=== PATIENT | female | born 1960 | race Caucasian/White ===

== ENCOUNTER → 2017-08-26 | Outpatient (CLI) | payer OTHER ==
[~2017-08-26] MED LIST: LEVSIN/SL0.125 MG PO
== END | disposition home or self-care (01) ==
LOC: RAD 501 08:59
DX: M25.552 Pain in left hip (principal); M54.5 Low back pain

== ENCOUNTER 2017-11-22 08:22 | Outpatient (CLI) | payer OTHER | END 2017-11-22 08:52 | disposition home or self-care (01) | LOC: MAMO-SONO 08:22 | DX: M54.5 Low back pain (principal); N64.4 Mastodynia; Z12.31 Encounter for screening mammogram for malignant neoplasm of breast ==

== ENCOUNTER 2018-01-11 13:32 | Outpatient (CLI) | payer OTHER | END 2018-01-11 14:23 | disposition home or self-care (01) | LOC: RAD 13:32 | DX: M54.5 Low back pain (principal) ==

== ENCOUNTER 2018-09-28 14:34 | Outpatient (CLI) | payer OTHER | END 2018-09-28 17:42 | disposition home or self-care (01) | LOC: LAB 14:34 | DX: R10.30 Lower abdominal pain, unspecified (principal); Z51.81 Encounter for therapeutic drug level monitoring ==

== ENCOUNTER 2018-09-29 10:35 | Outpatient (CLI) | payer OTHER | END 2018-09-29 10:41 | disposition home or self-care (01) | LOC: LAB 10:35 | DX: R94.7 Abnormal results of other endocrine function studies (principal) ==

== ENCOUNTER 2018-09-30 08:35 | Outpatient (CLI) | payer OTHER | END 2018-09-30 09:39 | disposition home or self-care (01) | LOC: TOM 08:35 | DX: R10.30 Lower abdominal pain, unspecified (principal) ==

== ENCOUNTER 2019-08-15 09:29 | Outpatient (CLI) | payer OTHER | END 2019-08-15 09:38 | disposition home or self-care (01) | LOC: RAD 09:29 | DX: Z12.31 Encounter for screening mammogram for malignant neoplasm of breast (principal); Z87.898 Personal history of other specified conditions; N60.11 Diffuse cystic mastopathy of right breast; N60.12 Diffuse cystic mastopathy of left breast; M54.5 Low back pain ==

== ENCOUNTER 2019-08-15 10:56 | Outpatient (CLI) | payer OTHER | END 2019-08-15 11:25 | disposition home or self-care (01) | LOC: NUCLEAR 10:56 | DX: M81.0 Age-related osteoporosis without current pathological fracture (principal) ==

== ENCOUNTER 2021-09-02 07:53 | Outpatient (CLI) | payer OTHER | END 2021-09-02 08:07 | disposition home or self-care (01) | LOC: MAMO-SONO 07:53 | DX: N60.11 Diffuse cystic mastopathy of right breast (principal); N60.12 Diffuse cystic mastopathy of left breast ==

== ENCOUNTER 2021-09-02 08:34 | Outpatient (CLI) | payer OTHER | END 2021-09-02 09:16 | disposition home or self-care (01) | LOC: LAB 08:34 | PROVIDERS: ATTEND Obstetrics & Gynecology | DX: N95.1 Menopausal and female climacteric states (principal); R89.1 Abnormal level of hormones in specimens from other organs, systems and tissues; E03.8 Other specified hypothyroidism; D64.89 Other specified anemias; E55.9 Vitamin D deficiency, unspecified; E78.49 Other hyperlipidemia; M81.6 Localized osteoporosis [Lequesne] ==

== ENCOUNTER 2024-09-26 09:50 | Outpatient (CLI) | payer OTHER | END 2024-09-26 09:53 | disposition home or self-care (01) | LOC: RAD 09:50 | PROVIDERS: ATTEND Family Medicine | DX: M54.50 Low back pain, unspecified (principal) ==

== ENCOUNTER 2025-04-02 09:18 | Outpatient (CLI) | payer OTHER | END 2025-04-02 09:21 | disposition home or self-care (01) | LOC: SONOGRAMA 09:18 | PROVIDERS: ATTEND Pathology Anatomic Pathology | DX: D34 Benign neoplasm of thyroid gland (principal); E07.89 Other specified disorders of thyroid; E04.1 Nontoxic single thyroid nodule ==

== ENCOUNTER → 2025-05-14 09:03 | Outpatient (CLI) | payer OTHER ==
[2025-05-14 10:02] LABS: URINE APPEARANCE Clear; URINE BILIRRUBIN Negative (NEGATIVE); URINE BLOOD Negative; URINE COLOR Yellow; URINE GLUCOSE Negative (NEGATIVE); URINE KETONE Negative (NEGATIVE); URINE LEUKOCYTE Negative; URINE NITRATE Negative; URINE PROTEIN Negative (NEGATIVE); URINE UROBILINOGEN 0.2 E.U./dl
[2025-05-14 10:06] LABS: URINE BACTERIA 4.5 uL (0.0-1933); URINE RBC 15.5 uL (0.0-20.8)
[2025-05-14 10:09] LABS: URINE CAST 0.00 uL (0.0-1.40); URINE EPITHELIAL CELLS 1.0 uL (0.0-38.8); URINE WBC 0.4 uL (0.0-23.2)
== END | disposition home or self-care (01) ==
LOC: LAB 09:03
DX: R31.21 Asymptomatic microscopic hematuria (principal)

== ENCOUNTER 2025-05-14 09:30 | Outpatient (CLI) | payer OTHER | END 2025-05-14 09:32 | disposition home or self-care (01) | LOC: SONOGRAMA 09:30 | PROVIDERS: ATTEND Pathology Anatomic Pathology | DX: D34 Benign neoplasm of thyroid gland (principal); E07.89 Other specified disorders of thyroid; E04.9 Nontoxic goiter, unspecified ==